=== PATIENT | male | born 1995 | race African-American/Black ===

== ENCOUNTER 2025-04-09 13:49 | Emergency (ER) | payer OTHER ==
[~2025-04-09] VITALS: Ht 167.6 cm; Wt 77.0 kg
[2025-04-09 13:52] VITALS: BP 120/73; PULSE 101; RESP 18; TEMP 103.1; O2SAT 100
[2025-04-09 14:35] LABS: COVID AG,FIA SOURCE NASAL SWAB
[2025-04-09] MEDS: IBUPROFEN 600 MG TABLET PO ONE (14:53)
[2025-04-09] MEDS: ACETAMINOPHEN 500 MG TABLET PO ONE (14:53)
[2025-04-09] MEDS: GuaiFENesin/D-METHORPHAN [SUGAR-FREE] 200-20MG/10 ML SYRUP UDCUP PO ONE (14:53)
[2025-04-09] MEDS ORDERED: IBUP-1554 PO (15:01)
[2025-04-09] MEDS ORDERED: ACET-66 PO (15:01)
[2025-04-09] MEDS ORDERED: GUAIFDM PO (15:01)
[2025-04-09 15:17] LABS: SARS-COV2 (COVID) ANTIGEN,FIA Negative (Negative)
== END 2025-04-09 15:59 | disposition home or self-care (01) ==
LOC: EMS 13:49
DX: J11.1 Influenza due to unidentified influenza virus with other respiratory manifestations (principal); R05.9 Cough, unspecified; R09.81 Nasal congestion; R51.9 Headache, unspecified; J45.909 Unspecified asthma, uncomplicated; Z20.822 Contact with and (suspected) exposure to COVID-19
CPT/HCPCS: 99284; Z7502; Z7610

== ENCOUNTER 2025-04-14 12:20 | Emergency (ER) | payer OTHER ==
[~2025-04-14] VITALS: Ht 182.9 cm; Wt 78.2 kg
[~2025-04-14 12:20] MED LIST: ACET-66 PO; GUAIFDM PO; IBUP-1554 PO
[2025-04-14] MEDS ORDERED: ALBU18HF12 IH ×2 (12:25→14:22)
[2025-04-14] MEDS: IPRATROPIUM BROMIDE 0.5 MG/2.5 ML NEB SOLUTION NEB ONE (12:45)
[2025-04-14] MEDS: ALBUTEROL SULFATE 2.5 MG/0.5 ML NEB SOLUTION NEB ONE (12:45)
[2025-04-14 12:48] VITALS: PULSE 76; RESP 18; O2SAT 97
[2025-04-14 13:03] VITALS: PULSE 89; RESP 12; O2SAT 96
[2025-04-14] MEDS ORDERED: PRED-554 PO (14:22)
[2025-04-14] MEDS ORDERED: AZIT250T9 PO (14:22)
[2025-04-14] MEDS ORDERED: OMEP-148 PO (14:28)
[2025-04-14 14:34] VITALS: BP 111/38; PULSE 81; RESP 23; TEMP 98.1; O2SAT 96
[2025-04-14] MEDS: ACETAMINOPHEN 500 MG TABLET PO ONE (14:34)
[2025-04-14] MEDS: OMEPRAZOLE 20 MG CAPSULE PO ONE (14:34)
== END 2025-04-14 14:42 | disposition home or self-care (01) ==
LOC: EMS 12:22
DX: J40 Bronchitis, not specified as acute or chronic (principal); R06.00 Dyspnea, unspecified; Z79.899 Other long term (current) drug therapy
CPT/HCPCS: 99285; 71045; 94640; 96372; J2919; J7613